=== PATIENT | female | born 1960 | race Caucasian/White ===

== ENCOUNTER 2018-12-13 21:36 | Emergency (ER) | payer OTHER, SELFPAY ==
[2018-12-13 21:46] VITALS: BP 124/72; PULSE 69; RESP 24; TEMP 36.4; O2SAT 99; BMI 38.2
--- NOTE | 2018-12-13 22:01 | DI.RAD.S_ITS ---
PROCEDURE: XR CHEST 1V INDICATIONS: chest pain TECHNIQUE: One view of the chest was acquired. COMPARISON: None. FINDINGS: Surgical changes and devices: None. Lungs and pleura: Lungs are clear. No pleural effusions or pneumothorax. Mediastinum: Mediastinal contours appear normal. Heart size is normal. Bones and chest wall: No suspicious bony lesions. Overlying soft tissues appear unremarkable. IMPRESSION: No acute cardio pulmonary pathology. Dictated by: Felipe Brito M.D. on 12/14/2018 at 10:18 Approved by: Felipe Brito M.D. on 12/14/2018 at 10:18
[2018-12-13] MEDS: ASPIRIN 81 MG TAB 324 MG PO (22:03)
[2018-12-13] MEDS: ONDANSETRON 4 MG/2 ML INJ IV (22:03)
[2018-12-13 22:08] LABS: Add Manual Diff / Slide Review NO; Basophils Absolute Auto 100 /uL (0-100); Basophils Percent Auto 0.8 % (0-2); Eosinophils Absolute Auto 100 /uL (0-450); Eosinophils Percent Auto 1.4 % (2-4); Hematocrit 36.5 % (36-46); Hemoglobin 12.1 g/dL (12.0-16.0); INR 1.1 (0.9-1.3); Lymphocytes Absolute Auto 3500 /uL (1100-4500); Lymphocytes Percent Auto 41.1 % (25-40); Mean Corpuscular HGB Conc 33.1 % (30-36); Mean Corpuscular Hemoglobin 29.2 PG (26-34); Mean Corpuscular Volume 88.5 fL (80-100); Monocytes Absolute Auto 500 /uL (0-900); Monocytes Percent Auto 6.5 % (3-14); Neutrophils Absolute Auto 4200 /uL (1500-7000); Neutrophils Percent Auto 50.2 % (50-75); Platelet Count 299 X10^3/uL (150-400); Prothrombin Time 12.2 SECONDS (10.1-12.7); Red Blood Cell Count 4.12 X10^6/uL (4.0-5.2); Red Cell Distribution Width 14.2 % (11.6-14.8); White Blood Cell Count 8.4 X10^3/uL (4.5-11.0)
[2018-12-13 22:12] LABS: Alanine Aminotransferase 111 IU/L (9-52); Albumin 4.5 g/dL (3.5-5.0); Albumin Globulin Ratio 1.5 (1.0-2.8); Alkaline Phosphatase 91 U/L (38-126); Aspartate Aminotransferase 236 IU/L (14-36); BUN Creatinine Ratio 23.3 (6-22); Bilirubin Total 0.2 mg/dL (0.2-1.3); Blood Urea Nitrogen 28 mg/dL (7-17); Calcium 9.2 mg/dL (8.4-10.2); Carbon Dioxide 27 mmol/L (22-32); Chloride 101 mmol/L (98-107); Creatine Kinase 96 U/L (30-135); Estimated Glomerular Filt Rate 46.5 mL/min (>60); Globulin 3.1 g/dL (1.7-4.1); Glucose 111 mg/dL (70-100); HEMOLYSIS < 15 (0-50); Lipase 77 U/L (23-300); Potassium 3.3 mmol/L (3.4-5.1); Sodium 139 mmol/L (137-145); Total Protein 7.6 g/dL (6.3-8.2)
[2018-12-13 22:18] LABS: PTT Partial Thromboplastin Tim 33 SECONDS (26.4-36.2)
--- NOTE | 2018-12-13 22:20 | ED.CHESTPAIN ---
HPI - Chest Pain General Chief Complaint: Chest Pain Stated Complaint: chest pain Time Seen by Provider: 12/13/18 21:40 Source: patient and family Mode of arrival: ambulatory Limitations: no limitations History of Present Illness HPI narrative: 58-year-old former smoking female with history of hypertension presents with her in the chief complaint of a sudden onset right upper back pain that started about 30 minutes prior to her arrival. She was resting at home when she developed this pressure-like pain that then radiated to her chest. The chest pain did not last very long at all and had no provocation or palliation. She denies associated symptoms or other cardiac equivalent such as dizziness, weakness or lightheadedness. She denies any shortness of breath nausea, vomiting or diaphoresis. She denies any history of the same. She denies any history of blood clots, recent travel or exertion. MD complaint: chest pain Onset (ago): minute(s) Duration: improved Onset: during rest Pain location: left chest Severity: mild Quality: dull Pain radiation: back Relieving factors: other (leaning back) Exacerbating factors: inspiration Treatments prior to arrival chest pain: none Related Data On Oral Contraceptives: No Home Medications Medication Instructions Recorded Confirmed lisinopril-hydrochlorothiazide 1 tab PO DAILY 12/13/18 12/13/18 Previous Rx's Medication Instructions Recorded ketorolac 10 mg PO Q6H PRN #14 tab 12/14/18 Allergies Allergy/AdvReac Type Severity Reaction Status Date / Time doxycycline Allergy Verified 12/13/18 21:50 amoxicillin AdvReac Verified 12/13/18 21:50 Review of Systems Review of Systems ROS Unobtainable: All systems reviewed & are unremarkable except as noted in HPI and below Constitutional Denies chills, Denies fever(s), Denies lethargy and Denies weakness Eyes Denies change in vision, Denies eye discharge, Denies irritation and Denies loss of vision ENT Ears, Nose, Mouth, and Throat: Denies change in voice, Denies neck pain and Denies sore throat Cardiovascular Reports chest pain, Denies irregular heart rhythm, Denies lightheadedness, Denies palpitations, Denies dyspnea, Denies dyspnea on exertion and Denies orthopnea Respiratory Denies cough, Reports pain on inspiration, Denies dyspnea, Denies dyspnea on exertion and Denies wheezing Gastrointestinal Gastrointestinal: Denies abdominal pain, Denies change in bowel habits, Denies diarrhea, Denies nausea and Denies vomiting Genitourinary Denies hematuria, Denies flank pain, Denies urinary incontinence and Denies urinary urgency Musculoskeletal Reports back pain and Denies neck pain Integumentary/Breasts Denies pruritus, Denies erythema, Denies rash and Denies wounds Neurologic Denies confusion, Denies loss of vision and Denies weakness Psychiatric Denies anxiety, Denies confusion, Denies depression, Denies homicidal ideation and Denies suicidal ideation Endocrine Denies palpitations Hematologic/Lymphatic Denies easy bruising Allergic/Immunologic Denies wheezing [facility] Medical History Anxiety (Acute) Depression (Acute) HTN (hypertension) (Acute) Social History Smoking Status: Former smoker Social History Smoking Status: Former smoker Exam Narrative Exam Narrative: GENERAL: 58F appears stated age. She is clearly anxious and nervous, no respiratory distress. Obese HEAD: Atraumatic. Normocephalic. No temporal or scalp tenderness. EYES: Pupils equal round and reactive. Extraocular motions intact. No scleral icterus. No injection or drainage. ENT: Nose without bleeding, purulent drainage or septal hematoma. Throat without erythema, tonsillar hypertrophy or exudate. Uvula midline. Airway patent. NECK: Trachea midline. No JVD or lymphadenopathy. Supple, nontender, no meningeal signs. CARDIOVASCULAR: Regular rate and rhythm without murmurs, gallops, or rubs. RESPIRATORY: Clear to auscultation. Breath sounds equal bilaterally. No wheezes, rales, or rhonchi. GASTROINTESTINAL: Abdomen soft, non-tender, nondistended. No hepato-splenomegaly, or palpable masses. No guarding. EXTREMITIES: No clubbing, cyanosis, or edema. No joint tenderness, effusion, or edema noted. BACK: Some midline tenderness in midthoracics, no swelling. Redness, warmth. No stepoff. NEURO: AOx3. SKIN: No rash or erythema. Initial Vital Signs Initial Vital Signs: Vital Signs Temperature 97.5 F L 12/13/18 21:46 Pulse Rate 69 12/13/18 21:46 Respiratory Rate 24 12/13/18 21:46 Blood Pressure 124/72 12/13/18 21:46 Pulse Oximetry 99 12/13/18 21:46 Scores HEART Score Heart Score history: Slightly Suspicious Heart Score EKG: Normal Heart Score Age: 45-64 years old Heart Score risk factors: 1-2 risk factors Heart Score troponin: < or = to normal limit Heart Score Total: 2 Course Orders Ordered: ED Orders 12/13/18 21:45 Complete Blood Count AUTO DIFF Stat Comprehensive Metabolic Panel Stat Lipase Stat Partial Thromboplastin Time Stat Prothrombin Time INR Stat Troponin & CK Cardiac Panel Stat 12/13/18 21:51 EKG-12 Lead Stat 12/13/18 22:01 XR chest 1V Stat EKG-12 Lead Stat 12/13/18 23:51 Trop I [Troponin I] Stat Discontinued Medications Aspirin (Aspirin Chew) 324 mg PO NOW ONE Stop: 12/13/18 22:01 Last Admin: 12/13/18 22:03 Dose: 324 mg Ketorolac Tromethamine (Toradol) 15 mg IV NOW ONE Stop: 12/13/18 22:29 Last Admin: 12/13/18 22:39 Dose: 15 mg Ondansetron HCl (Zofran) 4 mg IV NOW ONE Stop: 12/13/18 22:01 Last Admin: 12/13/18 22:03 Dose: 4 mg Reevaluation(s) Reevaluation #1: patient resting comfortably and is completely asymptomatic after toradol Vital Signs - 8 hr 12/13/18 21:46 12/13/18 23:30 12/14/18 00:19 Temperature 97.5 F L Pulse Rate 69 63 63 Respiratory Rate 24 17 18 Blood Pressure 124/72 Blood Pressure [Left Arm] 75/54 L 95/62 Pulse Oximetry 99 95 95 MDM - Chest Pain Medical Records Data Attestation: I reviewed the patient's medical records. Lab Data Result diagrams: 12/13/18 21:45 12/13/18 21:45 Lab Results 12/13/18 12/13/18 12/13/18 Range/Units 21:45 21:45 21:45 WBC 8.4 (4.5-11.0) X10^3/uL RBC 4.12 (4.0-5.2) X10^6/uL Hgb 12.1 (12.0-16.0) g/dL Hct 36.5 (36-46) % MCV 88.5 (80-100) fL MCH 29.2 (26-34) PG MCHC 33.1 (30-36) % RDW 14.2 (11.6-14.8) % Plt Count 299 (150-400) X10^3/uL Neut % (Auto) 50.2 (50-75) % Lymph % (Auto) 41.1 H (25-40) % [place] % (Auto) 6.5 (3-14) % Eos % (Auto) 1.4 L (2-4) % Baso % (Auto) 0.8 (0-2) % Neut # (Auto) 4200 (5103-2959) /uL Lymph # (Auto) 3500 (9241-2917) /uL [place] # (Auto) 500 (0-900) /uL Eos # (Auto) 100 (0-450) /uL Baso # (Auto) 100 (0-100) /uL PT 12.2 (10.1-12.7) SECONDS INR 1.1 (0.9-1.3) APTT 33 (26.4-36.2) SECONDS Sodium 139 (137-145) mmol/L Potassium 3.3 L (3.4-5.1) mmol/L Chloride 101 (98-107) mmol/L Carbon Dioxide 27 (22-32) mmol/L BUN 28 H (7-17) mg/dL Creatinine 1.20 H (0.52-1.04) mg/dL Estimated GFR 46.5 L (>60) mL/min BUN/Creatinine Ratio 23.3 H (6-22) Glucose 111 H (70-100) mg/dL Calcium 9.2 (8.4-10.2) mg/dL Total Bilirubin 0.2 (0.2-1.3) mg/dL AST 236 H (14-36) IU/L ALT 111 H (9-52) IU/L Alkaline Phosphatase 91 (38-126) U/L Total Creatine Kinase 96 (30-135) U/L CK-MB (CK-2) TNP CK-MB (CK-2) Rel Index TNP Troponin I < 0.012 (0.01-0.034) ng/mL Total Protein 7.6 (6.3-8.2) g/dL Albumin 4.5 (3.5-5.0) g/dL Globulin 3.1 (1.7-4.1) g/dL Albumin/Globulin Ratio 1.5 (1.0-2.8) Lipase 77 (23-300) U/L 12/13/18 Range/Units 23:51 WBC (4.5-11.0) X10^3/uL RBC (4.0-5.2) X10^6/uL Hgb (12.0-16.0) g/dL Hct (36-46) % MCV (80-100) fL MCH (26-34) PG MCHC (30-36) % RDW (11.6-14.8) % Plt Count (150-400) X10^3/uL Neut % (Auto) (50-75) % Lymph % (Auto) (25-40) % [place] % (Auto) (3-14) % Eos % (Auto) (2-4) % Baso % (Auto) (0-2) % Neut # (Auto) (0177-6489) /uL Lymph # (Auto) (4651-9601) /uL [place] # (Auto) (0-900) /uL Eos # (Auto) (0-450) /uL Baso # (Auto) (0-100) /uL PT (10.1-12.7) SECONDS INR (0.9-1.3) APTT (26.4-36.2) SECONDS Sodium (137-145) mmol/L Potassium (3.4-5.1) mmol/L Chloride (98-107) mmol/L Carbon Dioxide (22-32) mmol/L BUN (7-17) mg/dL Creatinine (0.52-1.04) mg/dL Estimated GFR (>60) mL/min BUN/Creatinine Ratio (6-22) Glucose (70-100) mg/dL Calcium (8.4-10.2) mg/dL Total Bilirubin (0.2-1.3) mg/dL AST (14-36) IU/L ALT (9-52) IU/L Alkaline Phosphatase (38-126) U/L Total Creatine Kinase (30-135) U/L CK-MB (CK-2) CK-MB (CK-2) Rel Index Troponin I < 0.012 (0.01-0.034) ng/mL Total Protein (6.3-8.2) g/dL Albumin (3.5-5.0) g/dL Globulin (1.7-4.1) g/dL Albumin/Globulin Ratio (1.0-2.8) Lipase (23-300) U/L Imaging Data Chest x-ray: My impression: NAP ECG Data Attestation: I personally reviewed and interpreted this ECG as follows: Prior ECG tracings: not available for review Interpretation: EKG is normal sinus rhythm rate [ 62] and free of any signs of ischemia or ectopy. No ST segmental elevation or depression. No T wave inversions EKG is normal sinus rhythm rate [ 66] and free of any signs of ischemia or ectopy. No ST segmental elevation or depression. No T wave inversions MDM Narrative Medical decision making narrative: Multiple etiologies for patient's symptoms considered including: [Ischemic cardiac disease, aortic dissection, pulmonary embolism, pneumothorax, musculoskeletal problem pancreatitis versus] Patient's symptoms improved or duration of stay with above-stated therapies. Heart score 2, no chest pain during visit and complete resolution of back pain after Toradol. Multiple EKGs nonischemic initial and repeat troponin normal Findings and discharge diagnosis discussed with patient/family followed by verbalization of understanding Return precautions discussed with patient/family whom verbalize understanding. Discharge Plan Departure Patient Disposition: Home Clinical Impression: Atypical chest pain Back pain Qualifiers: Back pain location: thoracic back pain Chronicity: acute Back pain laterality: midline Qualified Code(s): M54.6 - Pain in thoracic spine Instructions: DI for Atypical Chest Pain, DI for Thoracic Back Pain Activity Restrictions/Additional Instructions: *You have been diagnosed with [ back pain and atypical chest pain ] *What to do: *Take medications as directed *Follow up with your primary care provider in 2-3 days, call for an appointment. Let them know you were seen in the Emergency Department and that we ask that you be seen in follow up *Return to ER if you should have any new, worsening or concerning symptoms, such as [ongoing chest pain, shortness of breath, vomiting, passing out or being close to passing out, other bothersome symptoms ] Prescriptions: New ketorolac 10 mg tablet 10 mg PO Q6H PRN (Reason: pain) Qty: 14 RF: 0 No Action lisinopril-hydrochlorothiazide 20-25 mg tablet 1 tab PO DAILY RF: 0 Referrals: Liza Cardona MD [Primary Care Provider] -
[2018-12-13 22:24] LABS: Troponin I < 0.012 ng/mL (0.01-0.034)
[2018-12-13] MEDS: KETOROLAC 60 MG/2 ML VIAL 15 MG IV (22:39)
[2018-12-13 23:30] VITALS: BP 75/54; PULSE 63; RESP 17; O2SAT 95
[2018-12-14 00:19] VITALS: BP 95/62; PULSE 63; RESP 18; O2SAT 95
[2018-12-14 00:19] LABS: Troponin I < 0.012 ng/mL (0.01-0.034)
[2018-12-14 00:40] VITALS: BP 97/53; PULSE 62; RESP 18; O2SAT 97
== END 2018-12-14 00:40 | disposition home or self-care (01) ==
PROVIDERS: Emergency Provider Emergency Medicine; PCP Nutritionist
DX: R07.89 Other chest pain (principal); M54.6 Pain in thoracic spine
CPT/HCPCS: 36415; 36591; 71045; 80053; 82550; 83690; 84484; 85025; 85610; 85730; 93005; 96374; 96375; 99283; 99285; J1885; J2405